=== PATIENT | female | born 1935 | race Two or more races ===

== ENCOUNTER → 2020-06-29 | Outpatient (CLI) | payer OTHER ==
[2020-06-29 14:01] LABS: Urine Bacteria FEW /hpf (None Seen); Urine Blood Negative /uL (Negative); Urine Mucus FEW (None Seen); Urine Specific Gravity 1.024 (1.001-1.035); Urine WBC 52 /hpf (0 - 5)
[2020-06-29 14:05] LABS: Basophils # (auto) 0 10 ^3/uL (0-0.2); Basophils % (auto) 0.8 % (0.0-2.0); Eosinophils # (auto) 0.2 10 ^3/uL (0-0.8); Eosinophils % (auto) 2.9 % (0.0-7.0); Hemoglobin 12.9 g/dL (12.2-16.2); Lymphocytes # (auto) 1.8 10 ^3/uL (0.4-5.4); Mean Corpuscular Hemoglobin 30.4 pg (28.0-32.0); Mean Corpuscular Volume 89.5 fL (80.0-100.0); Monocytes # (auto) 0.3 10 ^3/uL (0-1.3); Monocytes % (auto) 6.3 % (0.0-12.0); Neutrophils # (auto) 3.2 10 ^3/uL (1.6-8.6); Platelet Count (auto) 272 10^3/uL (140-450); Red Blood Cells 4.25 10^6/uL (4.0-5.20); White Blood Cell 5.6 10^3/uL (4.4-10.8)
[2020-06-29 14:42] LABS: Albumin 3.8 g/dL (3.4-5.0); Calcium 9.5 mg/dL (8.5-10.1); Potassium 3.8 mmol/L (3.5-5.1)
[2020-06-29 14:46] LABS: Bilirubin, Total 0.5 mg/dL (0.2-1.0); Total Protein 7.4 g/dL (6.4-8.2)
== END | disposition home or self-care (01) ==
LOC: LAB 13:40
PROVIDERS: ATTEND Student in an Organized Health Care Education/Training Program
DX: I10 Essential (primary) hypertension (principal); E78.5 Hyperlipidemia, unspecified; E55.9 Vitamin D deficiency, unspecified
CPT/HCPCS: 36415; 80053; 80061; 81001; 82306; 84443; 85025

== ENCOUNTER 2021-08-13 07:43 | Inpatient (IN) | payer OTHER ==
[~2021-08-13] VITALS: Ht 160 cm; Wt 59.5 kg
[2021-08-13 09:04] LABS: Basophils # (auto) 0 10 ^3/uL (0-0.2); Basophils % (auto) 0.2 % (0.0-2.0); Eosinophils # (auto) 0.1 10 ^3/uL (0-0.8); Eosinophils % (auto) 0.5 % (0.0-7.0); Hematocrit 38.6 % (36.0-46.0); Hemoglobin 13.5 g/dL (12.2-16.2); Lymphocytes # (auto) 1.2 10 ^3/uL (0.4-5.4); Lymphocytes % (auto) 7.4 % (10.0-50.0); Mean Corpuscular Hemoglobin 30.4 pg (28.0-32.0); Mean Corpuscular Hgb Conc. 34.9 g/dL (32.0-36.0); Mean Corpuscular Volume 87.2 fL (80.0-100.0); Monocytes # (auto) 1.5 10 ^3/uL (0-1.3); Monocytes % (auto) 9.3 % (0.0-12.0); Neutrophils # (auto) 13.4 10 ^3/uL (1.6-8.6); Neutrophils % (auto) 82.6 % (37.0-80.0); Red Blood Cells 4.43 10^6/uL (4.0-5.20); Red Cell Distribution Width 12.8 % (11.8-14.3); White Blood Cell 16.2 10^3/uL (4.4-10.8)
[2021-08-13 09:16] LABS: Albumin 2.7 g/dL (3.4-5.0); Calcium 8.4 mg/dL (8.5-10.1)
[2021-08-13 09:23] LABS: BUN/Creatinine Ratio 14.8; Total Protein 6.2 g/dL (6.4-8.2)
[2021-08-13 09:32] LABS: Potassium 2.6 mmol/L (3.5-5.1)
[2021-08-13] MEDS ORDERED: POTASSIUM CHL 20MEQ/100ML 100 ML IV ONE (10:30)
[2021-08-13] MEDS ORDERED: metroNIDAZOLE 500MG/100ML 100 ML IV ONE (10:30)
[2021-08-13] MEDS ORDERED: cefTRIAXone 1GM/50ML D5W 50 ML IV ONE (10:30)
[2021-08-13 11:54] LABS: Urine Blood 1+ /uL (Negative)
[2021-08-13 11:58] LABS: Urine Bacteria FEW /hpf (None Seen)
[2021-08-13] MEDS ORDERED: SODIUM CHLORIDE 0.9% 500 ML IV ONE (15:45)
[2021-08-13] MEDS ORDERED: PANTOPRAZOLE 40 MG/10 ML VIAL INJ IV ONE (17:15)
[2021-08-13] MEDS: SODIUM CHLORIDE 0.9% 1,000 ML IV SCH (17:47)
[2021-08-13 20:41] LABS: Magnesium 1.8 mg/dL (1.6-2.6)
[2021-08-13 20:42] LABS: Phosphorus 1.3 mg/dL (2.5-4.90)
[2021-08-13] MEDS: metroNIDAZOLE 500MG/100ML 100 ML IV SCH (21:35)
[2021-08-13 22:00] VITALS: BP 139/69
[2021-08-14] VITALS (7 sets, daily range): BP systolic 99–136; BP diastolic 55–74
[2021-08-14] MEDS: SODIUM CHLORIDE 0.9% 1,000 ML IV SCH (03:08)
[2021-08-14] MEDS: metroNIDAZOLE 500MG/100ML 100 ML IV SCH ×3 (05:37→22:15)
[2021-08-14 06:10] LABS: BUN/Creatinine Ratio 21.9; Bilirubin, Total 0.5 mg/dL (0.2-1.0); Calcium 7.2 mg/dL (8.5-10.1); Total Protein 4.8 g/dL (6.4-8.2)
[2021-08-14] MEDS: D5W/SOD CHL 0.9%/KCL 40MEQ 1,000 ML IV SCH ×2 (06:31)
[2021-08-14 06:36] LABS: Basophils # (auto) 0.1 10 ^3/uL (0-0.2); Basophils % (auto) 0.5 % (0.0-2.0); Eosinophils # (auto) 0.2 10 ^3/uL (0-0.8); Eosinophils % (auto) 1.6 % (0.0-7.0); Hematocrit 33.2 % (36.0-46.0); Hemoglobin 11.6 g/dL (12.2-16.2); Lymphocytes # (auto) 1.2 10 ^3/uL (0.4-5.4); Lymphocytes % (auto) 9.6 % (10.0-50.0); Mean Corpuscular Hemoglobin 30.6 pg (28.0-32.0); Mean Corpuscular Hgb Conc. 34.9 g/dL (32.0-36.0); Mean Corpuscular Volume 87.6 fL (80.0-100.0); Monocytes % (auto) 7.8 % (0.0-12.0); Neutrophils # (auto) 9.9 10 ^3/uL (1.6-8.6); Neutrophils % (auto) 80.5 % (37.0-80.0); Red Blood Cells 3.79 10^6/uL (4.0-5.20); Red Cell Distribution Width 12.8 % (11.8-14.3); White Blood Cell 12.3 10^3/uL (4.4-10.8)
[2021-08-14] MEDS ORDERED: POTASSIUM PHOSPHATE 26.4 MEQ in SODIUM CHL 0.9% 100 ML IV ONE ×3 (07:30)
[2021-08-14 07:44] LABS: Potassium 2.9 mmol/L (3.5-5.1)
[2021-08-14] MEDS ORDERED: PANTOPRAZOLE 40 MG/10 ML VIAL INJ IV SCH (10:00)
[2021-08-14] MEDS: cefTRIAXone 1GM/50ML D5W 50 ML IV SCH (10:18)
[2021-08-14] MEDS: ENOXAPARIN SOD 40 MG/0.4 ML SYRINGE SC SCH (10:19)
[2021-08-14] MEDS: POTASSIUM CHL 20MEQ/100ML 100 ML IV SCH ×2 (11:11→13:30)
[2021-08-14] MEDS ORDERED: POTASSIUM PHOSPHATE 44 MEQ in D5W 5% 250 ML IV ONE (11:45)
[2021-08-14] MEDS: MAGNESIUM SULFATE 1GM/100ML 100 ML IV SCH ×4 (12:00→18:16)
[2021-08-14] MEDS ORDERED: CARV3.1240 PO (14:29)
[2021-08-14] MEDS ORDERED: LISI2.5T47 PO (14:29)
[2021-08-14] MEDS ORDERED: ATOR20TA50 PO (14:29)
[2021-08-14] MEDS ORDERED: GOLYTELY 4L KIT PO ONE (15:45)
[2021-08-14] MEDS: SOD CHL 0.9%/ KCL 40MEQ 1,000 ML IV SCH (17:45)
[2021-08-14 19:15] LABS: INR 1.05 (0.9-1.15)
[2021-08-15] VITALS (7 sets, daily range): BP systolic 110–139; BP diastolic 53–89
[2021-08-15] MEDS: SOD CHL 0.9%/ KCL 40MEQ 1,000 ML IV SCH ×2 (01:05→10:24)
[2021-08-15 05:28] LABS: Basophils # (auto) 0.1 10 ^3/uL (0-0.2); Basophils % (auto) 0.5 % (0.0-2.0); Eosinophils # (auto) 0.2 10 ^3/uL (0-0.8); Hematocrit 33.4 % (36.0-46.0); Hemoglobin 11.6 g/dL (12.2-16.2); Lymphocytes # (auto) 1.1 10 ^3/uL (0.4-5.4); Lymphocytes % (auto) 11.7 % (10.0-50.0); Mean Corpuscular Hemoglobin 30.3 pg (28.0-32.0); Mean Corpuscular Hgb Conc. 34.6 g/dL (32.0-36.0); Mean Corpuscular Volume 87.5 fL (80.0-100.0); Monocytes # (auto) 0.8 10 ^3/uL (0-1.3); Neutrophils # (auto) 7.2 10 ^3/uL (1.6-8.6); Neutrophils % (auto) 76.8 % (37.0-80.0); Nucleated Red Blood Cells % 0.1 %; Red Blood Cells 3.82 10^6/uL (4.0-5.20); Red Cell Distribution Width 12.9 % (11.8-14.3); White Blood Cell 9.4 10^3/uL (4.4-10.8)
[2021-08-15 05:52] LABS: BUN/Creatinine Ratio 7.1; Magnesium 2.4 mg/dL (1.6-2.6); Potassium 3.4 mmol/L (3.5-5.1)
[2021-08-15 06:00] LABS: Phosphorus 0.4 mg/dL (2.5-4.90)
[2021-08-15] MEDS: metroNIDAZOLE 500MG/100ML 100 ML IV SCH ×3 (06:00→21:43)
[2021-08-15] MEDS ORDERED: SODIUM CHLORIDE LOCK 10 ML ONE (07:43)
[2021-08-15] MEDS ORDERED: MIDAZOLAM HCL 5 MG/ML-1ML VIAL ONE (07:43)
[2021-08-15] MEDS ORDERED: diphenhdrAMINE HCL 50 MG/1 ML VL ONE (07:43)
[2021-08-15] MEDS ORDERED: fentaNYL CITRATE 100 MCG/2 ML VL ONE (07:44)
[2021-08-15] MEDS: ENOXAPARIN SOD 40 MG/0.4 ML SYRINGE SC SCH (10:23)
[2021-08-15] MEDS: cefTRIAXone 1GM/50ML D5W 50 ML IV SCH (10:23)
[2021-08-15] MEDS ORDERED: POTASSIUM PHOSPHATE 44 MEQ in D5W 5% 250 ML IV ONE (11:00)
[2021-08-15] MEDS: FLORASTOR (S. BOULARDII) 250 MG CAP PO SCH ×2 (15:03→21:43)
[2021-08-15] MEDS: VANCOMYCIN HCL 125MG/5ML ORAL SOL PO SCH (18:10)
[2021-08-16] MEDS: VANCOMYCIN HCL 125MG/5ML ORAL SOL PO SCH ×4 (00:10→17:46)
[2021-08-16] MEDS: SOD CHL 0.9%/ KCL 40MEQ 1,000 ML IV SCH ×2 (03:45→17:05)
[2021-08-16 05:00] VITALS: BP 128/62
[2021-08-16] MEDS: metroNIDAZOLE 500MG/100ML 100 ML IV SCH ×3 (06:12→20:59)
[2021-08-16 06:24] LABS: Calcium 6.9 mg/dL (8.5-10.1); Potassium 3.5 mmol/L (3.5-5.1)
[2021-08-16 06:26] LABS: BUN/Creatinine Ratio 3.3; Magnesium 1.8 mg/dL (1.6-2.6)
[2021-08-16 09:06] VITALS: BP 127/67
[2021-08-16] MEDS: FLORASTOR (S. BOULARDII) 250 MG CAP PO SCH ×2 (09:41→20:59)
[2021-08-16] MEDS: cefTRIAXone 1GM/50ML D5W 50 ML IV SCH (09:41)
[2021-08-16] MEDS: ENOXAPARIN SOD 40 MG/0.4 ML SYRINGE SC SCH (09:42)
[2021-08-16] MEDS ORDERED: SODIUM CHL 0.9% IV ONE (10:30)
[2021-08-16] MEDS ORDERED: POTASSIUM PHOSPHATE IV ONE (10:30)
[2021-08-16] MEDS: MAGNESIUM SULFATE 1GM/100ML 100 ML IV SCH ×2 (11:11→12:58)
[2021-08-16 12:48] VITALS: BP 111/61
[2021-08-16 16:44] VITALS: BP 106/63
[2021-08-16 22:00] VITALS: BP 130/62
[2021-08-17] MEDS: VANCOMYCIN HCL 125MG/5ML ORAL SOL PO SCH ×3 (00:08→12:49)
[2021-08-17 05:00] VITALS: BP 134/64
[2021-08-17] MEDS: metroNIDAZOLE 500MG/100ML 100 ML IV SCH ×2 (05:33→14:00)
[2021-08-17] MEDS: SOD CHL 0.9%/ KCL 40MEQ 1,000 ML IV SCH (05:35)
[2021-08-17 05:36] LABS: Alanine Aminotransferase 13 U/L (13-56); Anion Gap 6 (5-15); Aspartate Aminotransferase 15 U/L (15-37); BUN/Creatinine Ratio 3.7; Blood Urea Nitrogen < 1 mg/dL (7-18); Carbon Dioxide 22 mmol/L (21-32); Chloride 115 mmol/L (98-107); GFR African American 308 mL/min; GFR Non-African American 254 mL/min; Glucose 101 mg/dL (74-106); Magnesium 2.1 mg/dL (1.6-2.6); Potassium 3.4 mmol/L (3.5-5.1); Sodium 143 mmol/L (136-145)
[2021-08-17 05:39] LABS: Alkaline Phosphatase 42 U/L (45-117); Bilirubin, Total 0.2 mg/dL (0.2-1.0); Phosphorus 1.2 mg/dL (2.5-4.90); Total Protein 4.4 g/dL (6.4-8.2)
[2021-08-17] MEDS: FLORASTOR (S. BOULARDII) 250 MG CAP PO SCH (08:32)
[2021-08-17] MEDS: ENOXAPARIN SOD 40 MG/0.4 ML SYRINGE SC SCH (08:32)
[2021-08-17 09:00] VITALS: BP 126/68
[2021-08-17] MEDS ORDERED: POTASSIUM PHOSPHATE 44 MEQ in D5W 5% 250 ML IV ONE (09:00)
[2021-08-17] MEDS ORDERED: NEUTRA-PHOS TABLET PO SCH (12:00)
[2021-08-17] MEDS ORDERED: SACC250C PO (12:21)
[2021-08-17] MEDS ORDERED: VANC250C4 PO (12:21)
[2021-08-17] MEDS ORDERED: METR500T PO (12:21)
[2021-08-17 13:00] VITALS: BP 128/70
[2021-08-17 14:05] VITALS: BP 128/70
== END 2021-08-17 15:40 | disposition home or self-care (01) | DRG 872 ==
LOC: ER 07:43 → OVERFLOW 16:51 → EAST 18:06
PROVIDERS: ADMIT Registered Nurse; ATTEND Internal Medicine
PROC: 0DBF8ZX Excision of Right Large Intestine, Via Natural or Artificial Opening Endoscopic, Diagnostic (ICD-10-PCS; 2021-08-15)
PROC: 0DBG8ZX Excision of Left Large Intestine, Via Natural or Artificial Opening Endoscopic, Diagnostic (ICD-10-PCS; principal; 2021-08-15 08:20)
DX: A41.9 Sepsis, unspecified organism (principal); E44.0 Moderate protein-calorie malnutrition; A04.72 Enterocolitis due to Clostridium difficile, not specified as recurrent; N39.0 Urinary tract infection, site not specified; K57.32 Diverticulitis of large intestine without perforation or abscess without bleeding; E87.6 Hypokalemia; R31.9 Hematuria, unspecified; R80.9 Proteinuria, unspecified; R82.4 Acetonuria; K64.8 Other hemorrhoids; E78.5 Hyperlipidemia, unspecified; Z88.5 Allergy status to narcotic agent; Z90.49 Acquired absence of other specified parts of digestive tract; Z68.23 Body mass index [BMI] 23.0-23.9, adult; Z20.822 Contact with and (suspected) exposure to COVID-19
CPT/HCPCS: 36415; 45380; 71045; 74176; 80048; 80053; 81001; 82270; 82378; 83036; 83605; 83690; 83735; 83880; 84100; 84132; 85025; 85610; 87040; 87086; 87088; 87186; 87493; 93005; 96365; 96368; C9113; G0378; J0696; J2250; J3480; J3490; J7060

== ENCOUNTER → 2022-01-29 | Outpatient (CLI) | payer OTHER ==
[~2022-01-29] MED LIST: ATOR20TA50 PO; CARV3.1240 PO; LISI2.5T47 PO; METR500T PO; SACC250C PO; VANC250C4 PO
[2022-01-29 12:46] LABS: Basophils # (auto) 0.1 10 ^3/uL (0-0.2); Basophils % (auto) 0.9 % (0.0-2.0); Eosinophils # (auto) 0.2 10 ^3/uL (0-0.8); Eosinophils % (auto) 2.4 % (0.0-7.0); Hematocrit 40.3 % (36.0-46.0); Hemoglobin 13.6 g/dL (12.2-16.2); Lymphocytes # (auto) 2.1 10 ^3/uL (0.4-5.4); Lymphocytes % (auto) 27.5 % (10.0-50.0); Mean Corpuscular Hemoglobin 29.9 pg (28.0-32.0); Mean Corpuscular Hgb Conc. 33.6 g/dL (32.0-36.0); Mean Corpuscular Volume 88.9 fL (80.0-100.0); Monocytes # (auto) 0.6 10 ^3/uL (0-1.3); Monocytes % (auto) 7.4 % (0.0-12.0); Neutrophils # (auto) 4.7 10 ^3/uL (1.6-8.6); Neutrophils % (auto) 61.8 % (37.0-80.0); Red Blood Cells 4.53 10^6/uL (4.0-5.20); Red Cell Distribution Width 13.1 % (11.8-14.3); White Blood Cell 7.6 10^3/uL (4.4-10.8)
[2022-01-29 12:53] LABS: Urine Bacteria NONE SEEN /hpf (None Seen); Urine Blood Negative /uL (Negative); Urine Mucus FEW (None Seen); Urine WBC 3 /hpf (0 - 5)
[2022-01-29 13:16] LABS: Calcium 9.3 mg/dL (8.5-10.1); Potassium 3.9 mmol/L (3.5-5.1)
[2022-01-29 13:26] LABS: Albumin 3.6 g/dL (3.4-5.0); BUN/Creatinine Ratio 35.2; Bilirubin, Total 0.8 mg/dL (0.2-1.0); Total Protein 7.2 g/dL (6.4-8.2)
== END | disposition home or self-care (01) ==
LOC: LAB 12:25
PROVIDERS: ATTEND Student in an Organized Health Care Education/Training Program
DX: I10 Essential (primary) hypertension (principal)
CPT/HCPCS: 36415; 80053; 80061; 81001; 85025

== ENCOUNTER 2023-06-07 11:28 | Emergency (ER) | payer OTHER ==
[~2023-06-07] VITALS: Ht 149.9 cm; Wt 50.9 kg
[~2023-06-07 11:28] MED LIST changes: -ACET-1080 PO
[2023-06-07 11:54] VITALS: BP 140/63; PULSE 91; RESP 16; TEMP 98.3; O2SAT 97
[2023-06-07] MEDS ORDERED: ACET-1080 PO (13:09)
== END 2023-06-07 13:15 | disposition home or self-care (01) ==
LOC: ER 11:28
DX: S52.611A Displaced fracture of right ulna styloid process, initial encounter for closed fracture (principal); S00.03XA Contusion of scalp, initial encounter; E78.5 Hyperlipidemia, unspecified; Z98.890 Other specified postprocedural states; Z88.8 Allergy status to other drugs, medicaments and biological substances; Z79.899 Other long term (current) drug therapy; W01.198A Fall on same level from slipping, tripping and stumbling with subsequent striking against other object, initial encounter; Y93.89 Activity, other specified; Y92.89 Other specified places as the place of occurrence of the external cause; Y99.8 Other external cause status
CPT/HCPCS: 29125; 70450; 73110

== ENCOUNTER → 2023-06-07 | Outpatient (CLI) | payer OTHER ==
[~2023-06-07] MED LIST changes: +ACET-1080 PO
[2023-06-07 11:32] LABS: Basophils # (auto) 0.1 10 ^3/uL (0-0.2); Basophils % (auto) 0.8 % (0.0-2.0); Eosinophils # (auto) 0.4 10 ^3/uL (0-0.8); Eosinophils % (auto) 6.7 % (0.0-7.0); Hematocrit 35.9 % (36.0-46.0); Hemoglobin 11.6 g/dL (12.2-16.2); Lymphocytes # (auto) 1.1 10 ^3/uL (0.4-5.4); Lymphocytes % (auto) 15.9 % (10.0-50.0); Mean Corpuscular Hemoglobin 26.2 pg (28.0-32.0); Mean Corpuscular Hgb Conc. 32.2 g/dL (32.0-36.0); Mean Corpuscular Volume 81.3 fL (80.0-100.0); Monocytes # (auto) 0.7 10 ^3/uL (0-1.3); Monocytes % (auto) 10.5 % (0.0-12.0); Neutrophils # (auto) 4.4 10 ^3/uL (1.6-8.6); Neutrophils % (auto) 66.1 % (37.0-80.0); Nucleated Red Blood Cells % 0.1 %; Red Blood Cells 4.42 10^6/uL (4.0-5.20); Red Cell Distribution Width 14.5 % (11.8-14.3); White Blood Cell 6.7 10^3/uL (4.4-10.8)
[2023-06-07 12:28] LABS: Albumin 4.3 g/dL (3.2-4.8); Alkaline Phosphatase 113 U/L (46-116); Anion Gap 6 (5-15); Aspartate Aminotransferase 18 U/L (13-40); BUN/Creatinine Ratio 14.8 (10.0-20.0); Bilirubin, Total 0.4 mg/dL (0.2-1.0); Blood Urea Nitrogen 8 mg/dL (9-23); Carbon Dioxide 26 mmol/L (20-30); Chloride 106 mmol/L (98-107); Glucose 95 mg/dL (74-106); Potassium 3.9 mmol/L (3.5-5.1); Sodium 138 mmol/L (136-145); Total Protein 7.4 g/dL (5.7-8.2)
[2023-06-07 12:29] LABS: Alanine Aminotransferase < 9 U/L (7-40)
[2023-06-07 13:00] LABS: Triglycerides 101 mg/dL (< 150)
[2023-06-07 13:01] LABS: LDL Cholesterol 67 mg/dL (< 100)
[2023-06-07 13:02] LABS: Cholesterol 122 mg/dL (< 200); HDL Cholesterol 42 mg/dL (40-59)
== END | disposition home or self-care (01) ==
LOC: LAB 11:20
PROVIDERS: ATTEND Student in an Organized Health Care Education/Training Program
DX: I10 Essential (primary) hypertension (principal); R73.9 Hyperglycemia, unspecified; E55.9 Vitamin D deficiency, unspecified; N39.0 Urinary tract infection, site not specified
CPT/HCPCS: 36415; 80053; 80061; 82306; 83036; 84439; 84443; 85025

== ENCOUNTER → 2023-12-23 | Outpatient (CLI) | payer OTHER ==
[~2023-12-23] MED LIST changes: +ACET-1080 PO
[2023-12-23 11:05] LABS: Urine Bacteria None Seen /hpf (None Seen)
[2023-12-23 11:27] LABS: Urine Blood 1+ /uL (Negative); Urine Clarity Turbid (Clear); Urine Color Light-Yellow (Yellow); Urine Mucus FEW (None Seen); Urine Protein, UAD 1+ (Negative); Urine Specific Gravity 1.008 (1.001-1.035); Urine Urobilinogen Normal (Negative); Urine WBC 212 /hpf (0 - 5); Urine WBC Clumps PRESENT /hpf (None Seen); Urine pH 6.5 (5.0-9.0)
[2023-12-23 11:44] LABS: Basophils # (auto) 0.1 10 ^3/uL (0-0.2); Eosinophils # (auto) 0.1 10 ^3/uL (0-0.8); Eosinophils % (auto) 1.6 % (0.0-7.0); Hematocrit 30.5 % (36.0-46.0); Hemoglobin 10.3 g/dL (12.2-16.2); Lymphocytes # (auto) 1.3 10 ^3/uL (0.4-5.4); Lymphocytes % (auto) 20.4 % (10.0-50.0); Mean Corpuscular Hemoglobin 27.1 pg (28.0-32.0); Mean Corpuscular Hgb Conc. 33.8 g/dL (32.0-36.0); Mean Corpuscular Volume 80.2 fL (80.0-100.0); Monocytes # (auto) 0.5 10 ^3/uL (0-1.3); Monocytes % (auto) 7.9 % (0.0-12.0); Neutrophils # (auto) 4.3 10 ^3/uL (1.6-8.6); Neutrophils % (auto) 69.1 % (37.0-80.0); Platelet Count (auto) 417 10^3/uL (140-450); Red Cell Distribution Width 15.7 % (11.8-14.3); White Blood Cell 6.2 10^3/uL (4.4-10.8)
[2023-12-23 12:16] LABS: Albumin 3.7 g/dL (3.2-4.8); Alkaline Phosphatase 94 U/L (46-116); Anion Gap 7 (5-15); Aspartate Aminotransferase 14 U/L (13-40); BUN/Creatinine Ratio 11.8 (10.0-20.0); Blood Urea Nitrogen 6 mg/dL (9-23); Calcium 10.8 mg/dL (8.7-10.4); Carbon Dioxide 28 mmol/L (20-30); Chloride 105 mmol/L (98-107); Glucose 88 mg/dL (74-106); Potassium 3.2 mmol/L (3.5-5.1); Sodium 140 mmol/L (136-145)
[2023-12-23 12:17] LABS: Bilirubin, Total 0.5 mg/dL (0.2-1.0); Total Protein 6.6 g/dL (5.7-8.2)
[2023-12-23 12:21] LABS: Alanine Aminotransferase < 9 U/L (7-40)
== END | disposition home or self-care (01) ==
LOC: LAB 10:51
PROVIDERS: ATTEND Student in an Organized Health Care Education/Training Program
DX: I10 Essential (primary) hypertension (principal); R79.89 Other specified abnormal findings of blood chemistry; N39.0 Urinary tract infection, site not specified
CPT/HCPCS: 36415; 80053; 81001; 84439; 84443; 85025; 87086